=== PATIENT | male | born 2000 | race Caucasian/White ===

== ENCOUNTER 2024-07-19 16:17 | Emergency (ER) | payer MEDICARE, OTHER, SELFPAY ==
[2024-07-19 16:18] VITALS: BP 133/65
[2024-07-19 16:22] VITALS: BP 133/65
[2024-07-19 16:37] VITALS: BMI 29.0
[2024-07-19 17:00] VITALS: BP 105/57
--- NOTE | 2024-07-19 17:31 | ED.GENMED ---
History of Present Illness
General
Chief Complaint: Seizure
Source: patient, family (Mother) and ambulance crew
Exam Limitations: other (Autism)
Time Seen by Provider: 07/19/24 16:58
Nursing documentation reviewed up to this point in time: agreed with
History of Present Illness
History of Present Illness:
24-year-old male with a past medical history of autism, epilepsy who presents to the emergency department with his mother via EMS for evaluation after a seizure. Patient lives at home with his mother. She says that she heard a 'thud' just prior to
arrival around 4 PM and found him on carpeted floor having tonic-clonic seizure. She says total duration of tonic-clonic movements was roughly 1 minute. She did not give any abortive medication and seizure stopped on its own. He has had some
lethargy since. Brought to the emergency room by EMS. He does have known history of epilepsy that she had been following at [facility] but has aged out of care there and he is currently working towards establishing care through [place] [facility]. Mother
says last seizure was in 2017, last adjustment to his AEDs was a decrease in dose due to prolonged seizure-free. And this was about 2 years ago and he has been on a stable dose since. He has not missed any seizure medication. His current dose of
medication is Depakote 250 mg in the morning and 500 mg in the evening. He has otherwise been in his normal state of health recently has not had any recent illness. She believes he has been eating and drinking, sleeping well. There has been some
increase stress at home, patient's father recently had BKA which has put a lot of stress on the family. Patient does answer questions he says that he feels 'okay.' He denies any headache, chest or abdominal pain, pain in his extremities.
Past History
Social History
Tobacco: Non-smoker
Review of Systems
Review of Systems
All Other Systems: ROS reviewed and negative except as documented in HPI and ROS
Constitutional: Denies fever
Respiratory: Denies trouble breathing
Cardiac: Denies chest pain
ABD/GI: Denies abdominal pain or nausea
: Denies flank pain
Musculoskeletal: Denies neck pain or back pain
Neurological: Reports other (Seizure); Denies headache
Phy Exam
Physical Exam
Physical Exam:
General: Lying in bed sleeping but arousable, answering questions appropriately
Head: Normocephalic, atraumatic
Eyes: Conjunctiva normal, pupils equal round and reactive to light bilaterally, extraocular movements intact
Throat: Airway intact, handling secretions; very tiny bite adina on the left lateral tongue no bleeding or large laceration
Neck: Trachea midline
Lungs: Clear to auscultation bilaterally, no wheezing, rales, rhonchi
Heart: Tachycardia with regular rhythm, no murmurs, gallops, or rubs
Abd: Soft, non distended, nontender
Neuro: Cranial nerves intact, speech fluid, motor and sensory function intact
Skin: no rash
Extremities: No edema in extremities, equal pulses in all extremities
Scores
Heart Failure Risk
Heart Failure Risk Score: Not Applicable
Heart Score for Chest Pain Patients
STEMI patient?: Not applicable
Withdrawal Assessment of Alcohol
Withdrawal Assessment Completed?: Not applicable
Course
Orders/Labs/Results
Orders:
Orders
07/19/24 17:25
Electrocardiogram (*1) Urgent
Reason for Study: Other
Other Reason for Exam: seizure
EKG- Treatment ONCE
07/19/24 18:10
Complete Blood Count/With Diff Urgent
Comprehensive Metabolic Panel Urgent
Valproic Acid Level [Depakane] Urgent
07/19/24 18:37
CR Chest - 2 Views Urgent
Comment:
Reason For Exam: seizure, transient hypoxia--eval for aspiration
07/19/24 19:58
Divalproex Delayed Rel. 12 Hr [Depakote (12 Hr Release)] 500 mg PO NOW STA
Abnormal Lab Results
07/19/24
18:10
WBC 12.9 H 10^3/uL
(4.8-10.8)
Abs Immat Gran (auto) 0.1 H 10^3/uL
(0-0.05)
Absolute Neuts (auto) 10.9 H 10^3/uL
(1.4-6.5)
Absolute Lymphs (auto) 1.0 L 10^3/uL
(1.2-3.4)
Absolute Monos (auto) 0.8 H 10^3/uL
(0.1-0.6)
Immature Gran % 1.0 H %
(0-0.5)
Neutrophils % 84.2 H %
(42.2-75.2)
Lymphocytes % 7.8 L %
(20.5-51.1)
Alkaline Phosphatase 37 L U/L
(38-126)
07/19/24 18:10
07/19/24 18:10
Vital Signs
Initial and Last Documented VS:
Initial Vital Signs
BP
133/65
07/19/24 16:18
Last Documented Vital Signs
Temp Pulse Resp BP Pulse Ox
36.4 C 79 22 105/57 100
07/19/24 16:22 07/19/24 18:15 07/19/24 16:22 07/19/24 17:00 07/19/24 18:15
MDM/Problems Addressed
Differential Diagnosis Includes:
Breakthrough seizure
MDM/Problems Addressed:
24-year-old male presents with his mother for evaluation of breakthrough seizure�lasted for about a minute and has resolved. He is still slightly lethargic appears mildly postictal. He did not receive any medication to abort the seizure. Last
seizure was in 2017 and has been stable on Depakote 250 mg a.m. and 500 mg p.m. Follows with neurology through [facility] system�initially at [facility] and now establishing care through adult neurology at [place]. Vitals and exam as above. Will
check labs including a CBC and a CMP, Depakote level. Hold on head imaging with improving mental status and known seizure disorder without any trauma. He did have some transient hypoxia�was apparently 89 to 90% on room air which seems to have
rebounded; may have been related to positioning and postictal period but will check chest x-ray to rule out any signs of aspiration. Check EKG. Will monitor for recurrence of seizures and treat as needed. Case discussed with neurology if he
remains seizure-free and returns to baseline completely with reassuring workup can increase Depakote to 500 mg a.m., 500 mg p.m.
Labs reviewed: CBC shows marginal leukocytosis to 12.9 likely demargination in the setting of recent seizure. CMP no clinically significant abnormalities. Valproic acid level acceptable. Chest x-ray reviewed by me shows no acute disease. EKG
shows sinus rhythm. Vitals have been stable, patient is awake alert back to baseline. No additional seizures witnessed. Will provide his evening dose of Depakote here. Spoke with mother she feels comfortable with discharge will follow-up with
neurology through [facility]. Spoke about return precautions all questions answered.
Chronic conditions affecting care:
Epilepsy
*Pulse Oximetry
Patient hypoxic: no
*Critical Care Note
Total Time (30-74mins, 75-104mins- exclusive of procedures): Not Applicable
Data Reviewed
Source: patient, family and ambulance crew
Patient Management
Discussion with other providers: Storeroom Keeper (Discussed with neurology)
ED Attending Note
-
Portions of this chart may have been created with voice recognition software.� Occasional wrong word or��sound alike� substitutions may have occurred due to the inherent limitations of voice recognition software.
Discharge Plan
Departure
Patient Disposition: Home (Routine Discharge)
Date of Disposition: 07/19/24
Time of Disposition: 19:57
Patient with high blood pressure during this ER visit?: No
Discharge Problem:
Breakthrough seizure
Instructions: Seizures, Adult (DC)
Prescriptions:
New
divalproex [Depakote] 250 mg tablet,delayed release (DR/EC)
500 mg PO BID 30 Days Qty: 120 0RF
No Action
citalopram [Celexa] 10 MG/5 ML solution
1 ml PO DAILY
Activity Restrictions/Additional Instructions:
Thank you for visiting the Emergency Department at [facility].
1. Please schedule a follow up appointment as directed. Call first thing tomorrow morning to make an appointment.
2. If indicated, please take your medications as instructed and indicated on discharge paperwork.
3. If any of your symptoms do not improve, or persist, or become more severe within 6-12 hours, please return to the emergency department for further care.
4. Please return to the emergency department if you develop a headache, neck pain/stiffness, fever greater than 100.4F, chest pain, shortness of breath, persistent nausea, vomiting, slurred speech, difficulty walking, numbness/tingling, weakness,
signs of infection or any other symptoms that are worrisome to you.
Please call [phone] if you have any questions.
Interventions
Interventions:
*Risk Screen - Suicide Last Done: 07/19/24 16:22
*Neglect/Abuse Screening Last Done: 07/19/24 16:22
ED- Fall Risk Assessment Last Done: 07/19/24 16:38
ED- Cardiac Assessment Last Done: 07/19/24 16:38
ED- Neurological Assessment Last Done: 07/19/24 16:38
ED- Pulmonary Assessment Last Done: 07/19/24 16:38
Discharge Date and Time
Print Language: SLOVAK
[2024-07-19 18:22] LABS: % Basophils 0.3 % (0-2); % Eosinophils 0.2 % (0-6); % Lymphocytes 7.8 % (20.5-51.1); % Monocytes 6.5 % (1.7-9.3); % Neutrophils 84.2 % (42.2-75.2); Absolute Immature Granulocytes 0.1 10^3/uL (0-0.05); Absolute Monocytes 0.8 10^3/uL (0.1-0.6); Absolute Neutrophils 10.9 10^3/uL (1.4-6.5); Hematocrit 46.8 % (39.0-52.0); Hemoglobin 16.3 g/dL (13.0-18.0); Mean Corp Hgb Conc. 34.8 g/dL (33.0-37.0); Mean Corpuscular Hgb 30.8 pg (27.0-31.0); Mean Corpuscular Volume 88.3 fL (80.0-94.0); Mean Platelet Volume 10.4 fL (7.4-10.4); Nucleated Red Blood Cells % 0 % (-); Platelet Count 197 10^3/uL (130-400); Red Cell Dist. Width 12.5 % (11.5-14.5); White Blood Cell Count 12.9 10^3/uL (4.8-10.8)
[2024-07-19 18:39] LABS: Depakane 57.9 ug/ml (50.0-120.0)
[2024-07-19 18:43] LABS: ALT (SGPT) 21 U/L (0-50); AST (SGOT) 26 U/L (17-59); Albumin 4.9 g/dl (3.5-5.0); Alkaline Phosphatase 37 U/L (38-126); Blood Urea Nitrogen 12 mg/dl (9-20); Calcium 9.8 mg/dl (8.4-10.2); Carbon Dioxide 23 mmol/L (22-30); Chloride 104 mmol/L (98-107); Estimated Creatinine Clearance > 125 ml/min; Glucose 92 mg/dl (70-99); Potassium 4.3 mmol/L (3.5-5.1); Sodium 142 mmol/L (135-145); Total Bilirubin 0.3 mg/dl (0.2-1.3); Total Protein 7.4 g/dl (6.3-8.2); eGFR > 60.00
[2024-07-19 19:00] VITALS: BP 109/64
[2024-07-19 19:55] VITALS: BP 124/82
[2024-07-19 20:00] VITALS: BP 105/59
[2024-07-19] MEDS: DEPAKOTE (12 HR RELEASE) 500 MG PO (20:20)
== END 2024-07-19 20:50 | disposition home or self-care (01) ==
LOC: EMR 16:17
PROVIDERS: EMERGENCY PHYSICIAN Emergency Medicine; FAMILY PHYSICIAN Family Medicine
DX: G40.909 Epilepsy, unspecified, not intractable, without status epilepticus (principal); F84.0 Autistic disorder
CPT/HCPCS: 99283; 71046; 80053; 80164; 85025; 93005